=== PATIENT | male | born 1995 | race Caucasian/White ===

== ENCOUNTER 2017-09-16 03:13 | Emergency (ER) | payer BC ==
[2017-09-16] MEDS ORDERED: Nitrostat 0.4 MG (ED) SL ONE ×2 (03:15→03:25)
[2017-09-16] MEDS ORDERED: Sodium Chloride 0.9% 1000 ML 1,000 ML IV SCH (03:15)
[2017-09-16] MEDS ORDERED: BABY ASPIRIN 81 MG CHEW PO ONE (03:15)
[2017-09-16] MEDS ORDERED: BABY ASPIRIN 81 MG CHEW ONE (03:25)
[2017-09-16] MEDS ORDERED: Sodium Chloride 0.9% 1000 ML 1,000 ML ONE (03:25)
--- NOTE | 2017-09-16 03:28 | ERPHSYRPT ---
- History of Present Illness Time Seen by Provider: 09/16/17 03:23 Historian: patient, EMS Exam Limitations: no limitations Patient Subjective Stated Complaint: Pt arrives per EMS - refused cot into facility - C/O substernal and left sided chest pain rating pain 6/10 non- radiating in nature with associated vomiting and headache. Also reports shortness of breath at rest and with exertion. Describes pain in chest as tightness and heaviness. Denies heart history. Also C/O right side pain under ribs. Triage Nursing Assessment: Pt alert, oriented, answers all questions appropriately. Skin pink, warm, dry. Resps non-labored. SPO2 97% room air. Ambulatory to tx room, steady gait noted. EKG at triage. 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 Hx right costal pain and tender today but no other abdominal pain.but has N/V also no diaphoresis Pt was seen for similar symptoms a month ago and released with diagnosis of GERD but just had diffuse abd tenderness at that time; Timing/Duration: today Activities at Onset: activity Quality: burning, pressure, tightness Location: substernal Chest Pain Radiation: no radiation Severity of Pain-Max: moderate Severity of Pain-Current: moderate Modifying Factors: Improves With: palpation Associated Symptoms: nausea, vomiting, abdominal pain, shortness of breath, cough Prior Chest Pain/Cardiac Workup: recently seen/treated Nitro Today/Relief: 0.4 mg x 1, provided by ED, no relief Aspirin Treatment Today: 325 mg x 1, provided by ED Allergies/Adverse Reactions: No Known Drug Allergies Allergy (Verified 09/16/17 03:14) Home Medications: No Reportable Medications [No Reported Medications] 09/16/17 [History] Hx Tetanus, Diphtheria Vaccination/Date Given: Yes (approx 2 years ago) Hx Influenza Vaccination/Date Given: No Hx Pneumococcal Vaccination/Date Given: No Immunizations Up to Date: Yes - Review of Systems Constitutional: No Fever, No Chills Eyes: No Symptoms Ears, Nose, & Throat: No Symptoms Respiratory: Cough, Dyspnea, Dyspnea on Exertion (DAVILA) Cardiac: Chest Pain, No Edema, No Syncope Abdominal/Gastrointestinal: No Abdominal Pain, No Nausea, No Vomiting, No Diarrhea Genitourinary Symptoms: No Dysuria Musculoskeletal: No Back Pain, No Neck Pain Skin: No Rash Neurological: No Dizziness, No Focal Weakness, No Sensory Changes Psychological: No Symptoms Endocrine: No Symptoms Hematologic/Lymphatic: No Symptoms Immunological/Allergic: No Symptoms All Other Systems: Reviewed and Negative - Past Medical History Pertinent Past Medical History: No - Past Surgical History Past Surgical History: No - Social History Smoking Status: Never smoker Exposure to second hand smoke: No Drug Use: none Patient Lives Alone: No - Nursing Vital Signs Nursing Vital Signs: Initial Vital Signs Temperature 98.8 F 09/16/17 03:15 Pulse Rate 97 H 09/16/17 03:15 Respiratory Rate 20 09/16/17 03:15 Blood Pressure 152/95 09/16/17 03:15 O2 Sat by Pulse Oximetry 95 09/16/17 03:15 Pain Scale Pain Intensity 6 - Physical Exam General Appearance: no apparent distress, alert Eye Exam: PERRL/EOMI, eyes nml inspection Ears, Nose, Throat Exam: normal ENT inspection, moist mucous membranes Neck Exam: normal inspection, non-tender, supple, full range of motion Respiratory Exam: normal breath sounds, lungs clear, No respiratory distress Cardiovascular Exam: regular rate/rhythm, normal heart sounds Gastrointestinal/Abdomen Exam: soft, tenderness (RUQ reproducible each time), guarding, No distention, No mass, No pulsatile mass, No rebound Rectal Exam: deferred Back Exam: normal inspection, No CVA tenderness, No vertebral tenderness Extremity Exam: normal inspection, normal range of motion Neurologic Exam: alert, oriented x 3, cooperative, normal mood/affect, sensation nml, No motor deficits Skin Exam: normal color, warm, dry SpO2 Interpretation: normal SpO2: 97 Oxygen Delivery: Room Air - Course Nursing assessment & vital signs reviewed: Yes EKG Interpreted by Me: Sinus Rhythm, NORMAL AXIS, Non-specific ST Changes - Radiology Exams Chest X-ray Interpretation: Interpreted by me, Reviewed by me, Other (increased reticular density diffuse) - CT Exams Abdomen/Pelvis CT Interpretation: Tele-radiologist Report, No appendicitis, Other (enlarged liver/spleen) Ordered Tests: Active Orders 24 hr Category Date Time Status Electronic Equipment Trades Worker STAT Care 09/16/17 03:16 Active Clean Catch Urine Specimen STAT Care 09/16/17 03:15 Active EKG-ER Only STAT Care 09/16/17 03:15 Active IV Insertion STAT Care 09/16/17 03:15 Active Pulse Oximetry (ED) STAT Care 09/16/17 03:15 Active ABDOMEN AND PELVIS W/0 CONTRAS [CT] Stat Exams 09/16/17 04:01 Taken CHEST 1 VIEW (PORTABLE) Stat Exams 09/16/17 03:16 Taken AMYLASE Stat Lab 09/16/17 03:45 Completed ARTERIAL BLOOD GASES Stat Lab 09/16/17 03:55 Completed CBC W DIFF Stat Lab 09/16/17 03:45 Completed CK-Creatinine Phosphokinase Stat Lab 09/16/17 03:45 Completed CMP Stat Lab 09/16/17 03:45 Completed LIPASE Stat Lab 09/16/17 03:45 Completed Lactic Acid Stat Lab 09/16/17 03:15 Completed NT PRO BNP Stat Lab 09/16/17 03:45 Completed TROPONIN Q3H Lab 09/16/17 03:45 Completed TROPONIN Q3H Lab 09/16/17 06:30 Ordered TROPONIN Q3H Lab 09/16/17 09:30 Ordered TROPONIN Q3H Lab 09/16/17 12:30 Ordered TROPONIN Q3H Lab 09/16/17 15:30 Ordered UA W/RFX UR CULTURE Stat Lab 09/16/17 03:16 Ordered Medication Summary Generic Name Dose Route Start Last Admin Trade Name Freq PRN Reason Stop Dose Admin Sodium Chloride 1,000 mls @ 100 mls/hr 09/16/17 03:15 09/16/17 03:27 Sodium Chloride 0.9% 1000 Ml IV 10/16/17 03:14 100 mls/hr .Q10H BERNADETTE Administration Discontinued Medications Generic Name Dose Route Start Last Admin Trade Name Freq PRN Reason Stop Dose Admin Al Hydrox/Mg Hydrox/Simethicone 30 ml 09/16/17 04:49 09/16/17 04:53 Maalox Es 30 Ml Unit Dose PO 09/16/17 04:50 30 ml STAT ONE Administration Al Hydrox/Mg Hydrox/Simethicone Confirm 09/16/17 04:52 Maalox Es 30 Ml Unit Dose Administered 09/16/17 04:53 Dose 30 ml .ROUTE .STK-MED ONE Aspirin 324 mg 09/16/17 03:15 09/16/17 03:28 Baby Aspirin 81 Mg Chew PO 09/16/17 03:16 324 mg STAT ONE Administration Aspirin Confirm 09/16/17 03:25 Baby Aspirin 81 Mg Chew Administered 09/16/17 03:26 Dose 324 mg .ROUTE .STK-MED ONE Diphenhydramine HCl 25 mg 09/16/17 04:02 09/16/17 04:11 Benadryl 50 Mg/Ml IV 09/16/17 04:03 25 mg STAT ONE Administration Diphenhydramine HCl Confirm 09/16/17 04:09 Benadryl 50 Mg/Ml Administered 09/16/17 04:10 Dose 50 mg .ROUTE .STK-MED ONE Famotidine 20 mg 09/16/17 04:49 09/16/17 04:58 Pepcid 20 Mg Vial IV 09/16/17 04:50 20 mg STAT ONE Administration Famotidine Confirm 09/16/17 04:58 Pepcid 20 Mg Vial Administered 09/16/17 04:59 Dose 20 mg IV .STK-MED ONE Morphine Sulfate 4 mg 09/16/17 04:01 09/16/17 04:11 Morphine Sulfate 4 Mg Inj IV 09/16/17 04:02 4 mg STAT ONE Administration Morphine Sulfate Confirm 09/16/17 04:09 Morphine Sulfate 4 Mg Inj Administered 09/16/17 04:10 Dose 4 mg .ROUTE .STK-MED ONE Morphine Sulfate 4 mg 09/16/17 04:44 09/16/17 04:49 Morphine Sulfate 4 Mg Inj IV 09/16/17 04:45 4 mg STAT ONE Administration Morphine Sulfate Confirm 09/16/17 04:48 Morphine Sulfate 4 Mg Inj Administered 09/16/17 04:49 Dose 4 mg .ROUTE .STK-MED ONE Nitroglycerin 0.4 mg 09/16/17 03:15 09/16/17 03:28 Nitrostat 0.4 Mg (Ed) SL 09/16/17 03:16 0.4 mg STAT ONE Administration Nitroglycerin Confirm 09/16/17 03:25 Nitrostat 0.4 Mg (Ed) Administered 09/16/17 03:26 Dose 0.4 mg SL .STK-MED ONE Ondansetron HCl 4 mg 09/16/17 04:02 09/16/17 04:11 Zofran 4 Mg/2 Ml Vial IV 09/16/17 04:03 4 mg STAT ONE Administration Ondansetron HCl Confirm 09/16/17 04:09 Zofran 4 Mg/2 Ml Vial Administered 09/16/17 04:10 Dose 4 mg .ROUTE .STK-MED ONE Lab/Rad Data: Laboratory Result Diagrams 09/16/17 03:45 09/16/17 03:45 Laboratory Results 09/16/17 09/16/17 09/16/17 Range/Units 03:55 03:45 03:45 WBC (4.0-10.5) K/mm3 RBC (4.1-5.6) M/mm3 Hgb (12.5-18.0) gm/dl Hct (42-50) % MCV (78-100) fl MCH (26-32) pg MCHC (32-36) g/dl RDW (11.5-14.0) % Plt Count (150-450) K/mm3 MPV (6-9.5) fl Gran % (36.0-66.0) % Lymphocytes % (24.0-44.0) % Monocytes % (0.0-12.0) % Eosinophils % (0.00-5.0) % Basophils % (0.0-0.4) % Basophils # (0-0.4) Puncture Site LEFT RADIAL pCO2 34 L (35-45) mmHg pO2 86 (75-100) mmHg Base Excess 0.2 (-2.0-2.0) O2 Saturation 95.6 (94-100) g/dF ABG pH 7.45 (7.35-7.45) ABG HCO3 23.6 (22-28) ABG O2 Sat (Measured) 99.2 (95-100) % Alonso Test Yes A-a Gradient 21 a/A Ratio 0.80 Hemoglobin 14.7 Carboxyhemoglobin 2.7 (0.0-6.9) % THgb Methemoglobin 0.8 L (1.4-1.5) % Temperature 37.0 C POC O2 Flow Rate 21 % Sodium (136-145) mEq/L Potassium 3.8 (3.5-5.1) mEq/L Chloride (98-107) mEq/L Carbon Dioxide (21-32) mEq/L Anion Gap (5-15) MEQ/L BUN (9-20) mg/dL Creatinine (0.55-1.30) mg/dl Estimated GFR ML/MIN Glucose (70-110) MG/DL Lactic Acid (0.4-2.0) Calcium (8.5-10.1) mg/dL Total Bilirubin (0.2-1.0) mg/dL AST (15-37) U/L ALT (12-78) U/L Alkaline Phosphatase (46-116) U/L Creatine Kinase (39-308) U/L Troponin I < 0.017 (0.000-0.056) ng/ml NT-Pro-B Natriuret Pep 18 (0-125) pg/ml Serum Total Protein (6.4-8.2) gm/dL Albumin (3.4-5.0) g/dL Amylase (25-115) U/L Lipase (73-393) U/L 09/16/17 09/16/17 09/16/17 Range/Units 03:45 03:45 03:15 WBC 8.0 (4.0-10.5) K/mm3 RBC 5.09 (4.1-5.6) M/mm3 Hgb 15.0 (12.5-18.0) gm/dl Hct 45.1 (42-50) % MCV 88.6 (78-100) fl MCH 29.5 (26-32) pg MCHC 33.3 (32-36) g/dl RDW 13.7 (11.5-14.0) % Plt Count 205 (150-450) K/mm3 MPV 9.2 (6-9.5) fl Gran % 58.9 (36.0-66.0) % Lymphocytes % 25.2 (24.0-44.0) % Monocytes % 11.4 (0.0-12.0) % Eosinophils % 3.9 (0.00-5.0) % Basophils % 0.6 (0.0-0.4) % Basophils # 0.05 (0-0.4) Puncture Site pCO2 (35-45) mmHg pO2 (75-100) mmHg Base Excess (-2.0-2.0) O2 Saturation (94-100) g/dF ABG pH (7.35-7.45) ABG HCO3 (22-28) ABG O2 Sat (Measured) (95-100) % Alonso Test A-a Gradient a/A Ratio Hemoglobin Carboxyhemoglobin (0.0-6.9) % THgb Methemoglobin (1.4-1.5) % Temperature C POC O2 Flow Rate % Sodium 139 (136-145) mEq/L Potassium 3.5 (3.5-5.1) mEq/L Chloride 105 (98-107) mEq/L Carbon Dioxide 25.2 (21-32) mEq/L Anion Gap 12.3 (5-15) MEQ/L BUN 18 (9-20) mg/dL Creatinine 1.05 (0.55-1.30) mg/dl Estimated GFR > 60 ML/MIN Glucose 101 (70-110) MG/DL Lactic Acid 0.8 (0.4-2.0) Calcium 9.0 (8.5-10.1) mg/dL Total Bilirubin 0.40 (0.2-1.0) mg/dL AST 39 H (15-37) U/L ALT 80 H (12-78) U/L Alkaline Phosphatase 102 (46-116) U/L Creatine Kinase 408 H (39-308) U/L Troponin I (0.000-0.056) ng/ml NT-Pro-B Natriuret Pep (0-125) pg/ml Serum Total Protein 7.5 (6.4-8.2) gm/dL Albumin 3.9 (3.4-5.0) g/dL Amylase 66 (25-115) U/L Lipase 177 (73-393) U/L - Progress Progress: improved, re-examined Air Movement: good Progress Note: 09/16/17 04:22 pt is given heart score of 3 - 0 for age, 0 for family hx o f none, 1 for possible hptn, 1 moderately suspicious CP, 1 for nonspecific EKG. carboxy HGB 2.7 suggests possibility of very mild CO exposures in nonsmoker . Pt has consistent RUQ tenderness on repeat exam so discussed risk and benefit of CT and he wishes to proceed. 09/16/17 05:54 Chest pain and shortness of breath have resolved; minimal RUQ tenderness but no abd pain at this time pt advised of limitations of testing and that undetected pathology could still be evolving including CAD or other cardiac disease or other intrabdominal or retroperitoneal patholgoy; he prefers DC to f/u PCP on outpt basis to wwork these up and will return meantime if symptoms recur. Blood Culture(s) Obtained: No Antibiotics given: No Counseled pt/family regarding: lab results, diagnosis, need for follow-up, rad results - Departure Time of Disposition: 06:08 Departure Disposition: Home Clinical Impression: Abdominal pain of unknown etiology, resolved chest pain of unknown etiology, bilateral inguinal and umbilical asympto, hernias, Fatty liver, Hepatosplenomegaly Condition: Good Critical Care Time: No Referrals: SCREEN,DRUG [Primary Care Provider] - Instructions: Chest Pain, Shortness of Breath, Gastroesophageal Reflux Disease (GERD), Abdominal Pain-Adult, Groin Hernia, Abdominal Hernia Additional Instructions: followup your blood pressure and chest x-ray with your DrPhilippe as planned and for referral to complete further workups for the esophagus ( reflux) ,the gallbladder, and the heart , especially since the tests we did cannot completely exclude heart problems, and further tests are required to do that . We were not able to find an exact cause for your symptoms, although you have signs both of reflux and gallbladder concerns, and there may be undetected problems evolving with the need for further treatments, including the heart. We did also find enlargement of liver and spleen with minimal elevations of liver tests, as well as small hernias in the groin and belly button to followup with your Dr. ( the hernias do not appear related to your symptoms) return meantime if symptoms recur . begin an over the counter pepcid or similar med for your GERD
[2017-09-16 03:50] LABS: BASOPHIL % 0.6 % (0.0-0.4); Eosinophil % 3.9 % (0.00-5.0); Granulocytes % 58.9 % (36.0-66.0); Lymphocytes % 25.2 % (24.0-44.0); Mean Cell Volume 88.6 fl (78-100); Mean Corpuscular Hemoglobin 29.5 pg (26-32); Mean Platelet Volume 9.2 fl (6-9.5); Monocytes % 11.4 % (0.0-12.0); Platelet Count 205 K/mm3 (150-450); Red Blood Count 5.09 M/mm3 (4.1-5.6); Red Cell Distribution Width 13.7 % (11.5-14.0)
[2017-09-16] MEDS ORDERED: MORPHINE SULFATE 4 MG INJ IV ONE ×2 (04:01→04:44)
[2017-09-16] MEDS ORDERED: BENADRYL 50 MG/ML IV ONE (04:02)
[2017-09-16] MEDS ORDERED: Zofran 4 MG/2 ML VIAL IV ONE (04:02)
[2017-09-16 04:08] LABS: A-aADO2 21; ALLEN TEST OK? Yes; ARTERIAL BLD GAS O2 SATURATION 99.2 % (95-100); ARTERIAL BLOOD GAS BASE EXCESS 0.2 (-2.0-2.0); ARTERIAL BLOOD GAS FIO2 21 %; ARTERIAL BLOOD GAS PO2 86 mmHg (75-100); ARTERIAL BLOOD GAS pH 7.45 (7.35-7.45)
[2017-09-16] MEDS ORDERED: MORPHINE SULFATE 4 MG INJ ONE ×2 (04:09→04:48)
[2017-09-16] MEDS ORDERED: BENADRYL 50 MG/ML ONE (04:09)
[2017-09-16] MEDS ORDERED: Zofran 4 MG/2 ML VIAL ONE (04:09)
[2017-09-16 04:19] LABS: ALBUMIN 3.9 g/dL (3.4-5.0); ALKALINE PHOSPHATASE 102 U/L (46-116); ANION GAP 12.3 MEQ/L (5-15); BLOOD UREA NITROGEN 18 mg/dL (9-20); CHLORIDE 105 mEq/L (98-107); Carbon Dioxide 25.2 mEq/L (21-32); Glucose 101 MG/DL (70-110); LIPASE 177 U/L (73-393); Potassium 3.5 mEq/L (3.5-5.1); SGOT/AST 39 U/L (15-37); SGPT/ALT 80 U/L (12-78); SODIUM 139 mEq/L (136-145); Total Protein 7.5 gm/dL (6.4-8.2)
[2017-09-16] MEDS ORDERED: MAALOX ES 30 ML UNIT DOSE PO ONE (04:49)
[2017-09-16] MEDS ORDERED: Pepcid 20 MG VIAL IV ONE ×2 (04:49→04:58)
[2017-09-16] MEDS ORDERED: MAALOX ES 30 ML UNIT DOSE ONE (04:52)
[2017-09-16 05:47] LABS: ADD URINE CULTURE? NO (NO); Bilirubin NEGATIVE (NEGATIVE); Blood NEGATIVE Ery/ul (0-5); COMPLETE URINE MICROSCOPIC? NO; Collection Type VOID; Glucose NEGATIVE (NEGATIVE); Leukocyte Esterase NEGATIVE (NEGATIVE)
[2017-09-16 06:32] VITALS: BP 129/70; PULSE 97; O2SAT 100
--- NOTE | 2017-09-16 08:29 | XRAY ---
Indication: Chest pain and short of breath. Comparison: June 21, 2013. Portable chest slightly degraded by respiration artifact. No focal infiltrate, consolidation, or large effusion. Heart is not enlarged. Bony thorax intact. Impression: Nonacute chest.
--- NOTE | 2017-09-16 08:29 | XRAY ---
Indication: Right upper quadrant pain. Emesis. Short of breath. Multiple contiguous axial images obtained through the abdomen and pelvis without contrast as ordered. Comparison: None. Lung bases are clear. Heart is not enlarged. Noncontrasted stomach and bowel loops appear nonobstructed. Normal appendix. No free fluid/air. Diffusely fatty liver. Spleen is enlarged measuring 14.1 cm in greatest axial dimension. Remaining liver, gallbladder pancreas, spleen, adrenal glands, kidneys, ureters, bladder, and aorta unremarkable for noncontrast exam. Osseous structures intact. Small bilateral fatty inguinal hernias. Impression: 1. Fatty liver and splenomegaly. 2. Small bilateral fatty inguinal hernias. 3. No acute intra-abdominal/pelvic abnormalities on this noncontrast exam. Comment: Preliminary interpretation was made by [facility]. No critical discrepancy. CT DI 23.68
== END 2017-09-16 06:32 | disposition home or self-care (01) ==
LOC: ED 03:13
DX: R10.9 Unspecified abdominal pain (principal); R07.89 Other chest pain; K40.20 Bilateral inguinal hernia, without obstruction or gangrene, not specified as recurrent; K76.0 Fatty (change of) liver, not elsewhere classified; R16.2 Hepatomegaly with splenomegaly, not elsewhere classified; R11.2 Nausea with vomiting, unspecified; R06.02 Shortness of breath; R05 Cough
CPT/HCPCS: 36000; 36415; 36600; 71010; 74176; 80053; 81002; 82150; 82375; 82550; 82803; 83605; 83690; 83880; 84484; 85025; 93005; 93041; 96360; 96374; 96375; 96376; 99283; J1200; J2270; J2405; A9270-GY

== ENCOUNTER 2018-01-03 16:28 | Emergency (ER) | payer BC ==
[2018-01-03] MEDS ORDERED: Sodium Chloride 0.9% 1000 ML 1,000 ML IV STA (17:01)
--- NOTE | 2018-01-03 17:01 | ERPHSYRPT ---
- History of Present Illness Time Seen by Provider: 01/03/18 16:57 Source: patient Exam Limitations: no limitations Patient Subjective Stated Complaint: pt co headache,nausea, sob, cough Triage Nursing Assessment: pt walked in , resp easy, skin w/d/p, abd soft, no cough . also states he fell twice today from dizziness Physician History: The patient is a 22-year-old male complaining of a headache for 4 days followed by feeling nauseated, decreased fluid intake, and generalized muscle aches for 2 days. He denies cough or sore throat. He has not vomited. He denies diarrhea. He did not receive his influenza vaccination this year. His past medical history is unremarkable. He has taken Excedrin migraine, Tylenol, and ibuprofen without relief of his headache. He has not taken any of these medicines today. Timing/Duration: day(s) (4), gradual onset, worse Severity: severe Modifying Factors: Improves With: acetaminophen, ibuprofen Associated Symptoms: nausea, headaches, No vomiting, No abdominal pain, No cough Allergies/Adverse Reactions: No Known Drug Allergies Allergy (Verified 01/03/18 16:39) Home Medications: No Reportable Medications [No Reported Medications] 09/16/17 [History] Hx Tetanus, Diphtheria Vaccination/Date Given: Yes (approx 2 years ago) Hx Influenza Vaccination/Date Given: No Hx Pneumococcal Vaccination/Date Given: No Immunizations Up to Date: Yes - Review of Systems Constitutional: Malaise Eyes: No Symptoms Ears, Nose, & Throat: No Nose Congestion, No Throat Pain Respiratory: No Cough Cardiac: No Chest Pain, No Edema, No Syncope Abdominal/Gastrointestinal: Nausea, No Abdominal Pain, No Vomiting, No Diarrhea Genitourinary Symptoms: Other (decreased urine output), No Dysuria Musculoskeletal: Myalgias Skin: No Rash Neurological: Dizziness, Headache Psychological: No Symptoms Endocrine: No Symptoms Hematologic/Lymphatic: No Symptoms Immunological/Allergic: No Symptoms All Other Systems: Reviewed and Negative - Past Medical History Pertinent Past Medical History: No - Past Surgical History Past Surgical History: Yes Gastrointestinal: Cholecystectomy - Social History Smoking Status: Never smoker Exposure to second hand smoke: No Drug Use: none Patient Lives Alone: No - Nursing Vital Signs Nursing Vital Signs: Initial Vital Signs Temperature 97.6 F 01/03/18 16:33 Pulse Rate 96 H 01/03/18 16:33 Respiratory Rate 18 01/03/18 16:33 Blood Pressure 185/105 01/03/18 16:33 O2 Sat by Pulse Oximetry 96 01/03/18 16:33 Pain Scale Pain Intensity 9 - Physical Exam General Appearance: mild distress Eye Exam: PERRL/EOMI, eyes nml inspection Ears, Nose, Throat Exam: normal ENT inspection, TMs normal, pharynx normal, moist mucous membranes Neck Exam: normal inspection, non-tender, supple, full range of motion Respiratory Exam: normal breath sounds, lungs clear, No respiratory distress Cardiovascular Exam: regular rate/rhythm, normal heart sounds, normal peripheral pulses Gastrointestinal/Abdomen Exam: soft, normal bowel sounds, No tenderness, No mass Rectal Exam: not done Back Exam: normal inspection, normal range of motion, No CVA tenderness, No vertebral tenderness Extremity Exam: normal inspection, normal range of motion, pelvis stable Neurologic Exam: alert, oriented x 3, cooperative, normal mood/affect, nml cerebellar function, nml station & gait, sensation nml, No motor deficits Skin Exam: normal color, warm, dry, No rash Lymphatic Exam: No adenopathy SpO2 Interpretation: normal SpO2: 96 Oxygen Delivery: Room Air - Radiology Exams Chest X-ray Interpretation: Interpreted by me, Negative Ordered Tests: Active Orders 24 hr Category Date Time Status IV Insertion STAT Care 01/03/18 17:01 Active CHEST 2 VIEWS (PA AND LAT) Stat Exams 01/03/18 17:01 Taken BMP Stat Lab 01/03/18 17:20 Completed CBC W DIFF Stat Lab 01/03/18 17:20 Completed CULTURE, THROAT Stat Lab 01/03/18 17:20 Received Lactic Acid Stat Lab 01/03/18 17:01 Completed STREP SCREEN-BETA A Stat Lab 01/03/18 17:20 Completed Medication Summary Discontinued Medications Generic Name Dose Route Start Last Admin Trade Name Airam PRN Reason Stop Dose Admin Acetaminophen 975 mg 01/03/18 17:02 01/03/18 17:21 Tylenol 325 Mg PO 01/03/18 17:03 975 mg STAT ONE Administration Acetaminophen Confirm 01/03/18 17:17 Tylenol 325 Mg Administered 01/03/18 17:18 Dose 975 mg .ROUTE .STK-MED ONE Famotidine 20 mg 01/03/18 17:02 01/03/18 17:21 Pepcid 20 Mg Vial IV 01/03/18 17:03 20 mg STAT ONE Administration Famotidine Confirm 01/03/18 17:17 Pepcid 20 Mg Vial Administered 01/03/18 17:18 Dose 20 mg IV .STK-MED ONE Sodium Chloride 1,000 mls @ 999 mls/hr 01/03/18 17:01 01/03/18 17:22 Sodium Chloride 0.9% 1000 Ml IV 01/03/18 18:01 999 mls/hr .Q1H1M STA Administration Sodium Chloride Confirm 01/03/18 17:17 Sodium Chloride 0.9% 1000 Ml Administered 01/03/18 17:18 Dose 1,000 mls @ ud .ROUTE .STK-MED ONE Ketorolac Tromethamine 30 mg 01/03/18 17:02 01/03/18 17:21 Toradol 30 Mg Injection IV 01/03/18 17:03 30 mg STAT ONE Administration Ketorolac Tromethamine Confirm 01/03/18 17:17 Toradol 30 Mg Injection Administered 01/03/18 17:18 Dose 30 mg .ROUTE .STK-MED ONE Ondansetron HCl 4 mg 01/03/18 17:02 01/03/18 17:21 Zofran 4 Mg/2 Ml Vial IV 01/03/18 17:03 4 mg STAT ONE Administration Ondansetron HCl Confirm 01/03/18 17:17 Zofran 4 Mg/2 Ml Vial Administered 01/03/18 17:18 Dose 4 mg .ROUTE .STK-MED ONE Lab/Rad Data: Laboratory Result Diagrams 01/03/18 17:20 01/03/18 17:20 Laboratory Results 01/03/18 01/03/18 01/03/18 Range/Units 17:20 17:20 17:20 WBC (4.0-10.5) K/mm3 RBC (4.1-5.6) M/mm3 Hgb (12.5-18.0) gm/dl Hct (42-50) % MCV (78-100) fl MCH (26-32) pg MCHC (32-36) g/dl RDW (11.5-14.0) % Plt Count (150-450) K/mm3 MPV (6-9.5) fl Gran % (36.0-66.0) % Eos # (Auto) (0-0.5) Absolute Lymphs (auto) (1.0-4.6) Absolute Monos (auto) (0.0-1.3) Lymphocytes % (24.0-44.0) % Monocytes % (0.0-12.0) % Eosinophils % (0.00-5.0) % Basophils % (0.0-0.4) % Absolute Granulocytes (1.4-6.9) Basophils # (0-0.4) Sodium 141 (137-145) mmol/L Potassium 4.3 (3.5-5.1) mmol/L Chloride 104 (98-107) mmol/L Carbon Dioxide 26 (22-30) mmol/L Anion Gap 16.2 H (5-15) MEQ/L BUN 14 (9-20) mg/dL Creatinine 0.80 (0.66-1.25) mg/dL Estimated GFR > 60 ML/MIN Glucose 91 (74-106) mg/dL Lactic Acid (0.4-2.0) Calcium 9.6 (8.4-10.2) mg/dL Influenza Type A Ag NEGATIVE (NEGATIVE) Influenza Type B Ag NEGATIVE (NEGATIVE) RSV (PCR) NEGATIVE (Negative) Streptococcus Screen NEGATIVE (Negative) 01/03/18 01/03/18 Range/Units 17:20 17:01 WBC 7.5 (4.0-10.5) K/mm3 RBC 5.46 (4.1-5.6) M/mm3 Hgb 15.8 (12.5-18.0) gm/dl Hct 47.2 (42-50) % MCV 86.4 (78-100) fl MCH 28.9 (26-32) pg MCHC 33.5 (32-36) g/dl RDW 13.9 (11.5-14.0) % Plt Count 203 (150-450) K/mm3 MPV 9.5 (6-9.5) fl Gran % 55.3 (36.0-66.0) % Eos # (Auto) 0.16 (0-0.5) Absolute Lymphs (auto) 2.60 (1.0-4.6) Absolute Monos (auto) 0.57 (0.0-1.3) Lymphocytes % 34.7 (24.0-44.0) % Monocytes % 7.6 (0.0-12.0) % Eosinophils % 2.1 (0.00-5.0) % Basophils % 0.3 (0.0-0.4) % Absolute Granulocytes 4.14 (1.4-6.9) Basophils # 0.02 (0-0.4) Sodium (137-145) mmol/L Potassium (3.5-5.1) mmol/L Chloride (98-107) mmol/L Carbon Dioxide (22-30) mmol/L Anion Gap (5-15) MEQ/L BUN (9-20) mg/dL Creatinine (0.66-1.25) mg/dL Estimated GFR ML/MIN Glucose (74-106) mg/dL Lactic Acid 0.9 (0.4-2.0) Calcium (8.4-10.2) mg/dL Influenza Type A Ag (NEGATIVE) Influenza Type B Ag (NEGATIVE) RSV (PCR) (Negative) Streptococcus Screen (Negative) - Progress Progress: improved Counseled pt/family regarding: lab results, diagnosis, need for follow-up, rad results - Departure Time of Disposition: 18:20 Departure Disposition: Home Clinical Impression: Headache Condition: Stable Critical Care Time: No Referrals: ANA MARIA CENTENO [Primary Care Provider] - Additional Instructions: You had a migraine headache. You were given Toradol 30 mg, famotidine 20 mg, Zofran 4 mg, and fluids by IV, and Tylenol 975 mg orally in the ER. You have the night off from work. Stay well hydrated. Follow-up tomorrow if the condition worsens.
[2018-01-03] MEDS ORDERED: Pepcid 20 MG VIAL IV ONE ×2 (17:02→17:17)
[2018-01-03] MEDS ORDERED: Zofran 4 MG/2 ML VIAL IV ONE (17:02)
[2018-01-03] MEDS ORDERED: TORAdol 30 mg Injection IV ONE (17:02)
[2018-01-03] MEDS ORDERED: TYLENOL 325 MG PO ONE (17:02)
[2018-01-03] MEDS ORDERED: TORAdol 30 mg Injection ONE (17:17)
[2018-01-03] MEDS ORDERED: Zofran 4 MG/2 ML VIAL ONE (17:17)
[2018-01-03] MEDS ORDERED: TYLENOL 325 MG ONE (17:17)
[2018-01-03] MEDS ORDERED: Sodium Chloride 0.9% 1000 ML 1,000 ML ONE (17:17)
[2018-01-03 17:24] LABS: BASOPHIL % 0.3 % (0.0-0.4); Basophil (Absolute #) 0.02 (0-0.4); Eosinophil % 2.1 % (0.00-5.0); Eosinophil (Absolute #) 0.16 (0-0.5); Granulocyte Absolute (ANC) 4.14 (1.4-6.9); Granulocytes % 55.3 % (36.0-66.0); Hematocrit 47.2 % (42-50); Hemoglobin 15.8 gm/dl (12.5-18.0); Lymphocytes % 34.7 % (24.0-44.0); Mean Cell Volume 86.4 fl (78-100); Mean Corpuscular Hemoglobin 28.9 pg (26-32); Mean Corpuscular Hgb Concent. 33.5 g/dl (32-36); Mean Platelet Volume 9.5 fl (6-9.5); Monocyte (Absolute #) 0.57 (0.0-1.3); Monocytes % 7.6 % (0.0-12.0); Platelet Count 203 K/mm3 (150-450); Red Blood Count 5.46 M/mm3 (4.1-5.6); Red Cell Distribution Width 13.9 % (11.5-14.0); White Blood Count 7.5 K/mm3 (4.0-10.5)
[2018-01-03 17:41] LABS: ANION GAP 16.2 MEQ/L (5-15); BLOOD UREA NITROGEN 14 mg/dL (9-20); CHLORIDE 104 mmol/L (98-107); Calcium 9.6 mg/dL (8.4-10.2); Carbon Dioxide 26 mmol/L (22-30); Glucose 91 mg/dL (74-106); Potassium 4.3 mmol/L (3.5-5.1); SODIUM 141 mmol/L (137-145)
[2018-01-03 18:10] LABS: INFLUENZA A NEGATIVE (NEGATIVE); INFLUENZA B NEGATIVE (NEGATIVE); RESPIRATORY SYNCTIAL VIRUS NEGATIVE (Negative)
[2018-01-03 18:47] VITALS: BP 161/70; PULSE 78; O2SAT 97
--- NOTE | 2018-01-04 08:31 | XRAY ---
Indication: Cough and dizziness. Comparison: September 16, 2017. PA/lateral chest demonstrates normal heart, lungs, and bony thorax.
== END 2018-01-03 18:54 | disposition home or self-care (01) ==
LOC: ED 16:28
DX: R51 Headache (principal); R42 Dizziness and giddiness
CPT/HCPCS: 36000; 36415; 71046; 80048; 83605; 85025; 87070; 87430; 87631; 96360; 96361; 96374; 96375; 99283; 99284; J1885; J2405; A9270-GY

== ENCOUNTER 2018-01-05 15:46 | Emergency (ER) | payer BC ==
[2018-01-05] MEDS ORDERED: Sodium Chloride 0.9% 1000 ML 1,000 ML IV SCH (16:00)
[2018-01-05] MEDS ORDERED: Phenergan 25 MG INJ IV ONE ×2 (16:03→18:48)
--- NOTE | 2018-01-05 16:11 | ERPHSYRPT ---
- History of Present Illness Time Seen by Provider: 01/05/18 15:50 Source: patient Exam Limitations: no limitations Patient Subjective Stated Complaint: Pt states "I have been vomiting for a couple of days and I have this horrible headache." Triage Nursing Assessment: Pt alert and oriented X 3, skin pwd. PT ambualtes without difficulty, able to speak in clear full sentences. Physician History: FOR THE PAST WEEK PT HAS HAD NAUSEA, DIZZINESS AND A FRONTAL HEADACHE RADIATING TO THE ENTIRE HEAD; FOR THE PAST 2 DAYS CONSTANT DULL MID CHEST PAIN RADIATING TO THE NECK AND BACK WITH LEFT UPPER EXTREMITY NUMBNESS; TODAY NUMBNESS OF THE ENTIRE RIGHT LOWER EXTREMITY AND VOMITING X10 A FEW TIMES WITH FAINT RED BLOOD. Allergies/Adverse Reactions: No Known Drug Allergies Allergy (Verified 01/03/18 16:39) Hx Tetanus, Diphtheria Vaccination/Date Given: Yes Hx Influenza Vaccination/Date Given: Yes Hx Pneumococcal Vaccination/Date Given: No Immunizations Up to Date: Yes - Review of Systems Cardiac: Chest Pain Abdominal/Gastrointestinal: Nausea, Vomiting, Hematemesis Neurological: Dizziness, Headache, Sensory Changes All Other Systems: Reviewed and Negative - Past Medical History Pertinent Past Medical History: No - Past Surgical History Past Surgical History: Yes Gastrointestinal: Cholecystectomy - Social History Smoking Status: Never smoker Exposure to second hand smoke: No Drug Use: none Patient Lives Alone: No - Nursing Vital Signs Nursing Vital Signs: Initial Vital Signs Temperature 97.7 F 01/05/18 15:53 Pulse Rate 88 01/05/18 15:53 Respiratory Rate 18 01/05/18 15:53 Blood Pressure 160/104 01/05/18 15:53 O2 Sat by Pulse Oximetry 98 01/05/18 15:53 Pain Scale Pain Intensity 10 - Physical Exam General Appearance: alert Eye Exam: PERRL/EOMI Ears, Nose, Throat Exam: TMs normal, pharynx normal, moist mucous membranes Neck Exam: normal inspection Respiratory Exam: lungs clear Cardiovascular Exam: normal heart sounds Gastrointestinal/Abdomen Exam: soft, normal bowel sounds Back Exam: normal range of motion Extremity Exam: normal inspection, normal range of motion Neurologic Exam: alert, cooperative, sensation nml, No motor deficits, No motor weakness Skin Exam: rash (DISCRETE 1MM DIAMETER MACULES ON FACE) SpO2 Interpretation: normal SpO2: 98 Oxygen Delivery: Room Air - Course Nursing assessment & vital signs reviewed: Yes EKG Interpreted by Me: RATE (74), NORMAL AXIS, Other (SINUS ARRHYTHMIA) - Radiology Exams Chest X-ray Interpretation: Interpreted by me, No Pneumonia - CT Exams Head CT Interpretation: Tele-radiologist Report (NORMAL HEAD/BRAIN CT.) Chest CT Interpretation: Tele-radiologist Report (NO CENTRAL PULMONARY EMBOLISM IS PRESENT.) Abdomen/Pelvis CT Interpretation: Tele-radiologist Report (HEPATOMEGALY WITH HEPATIC STEATOSIS , GROSSLY UNCHANGED SINCE THE PRIOR EXAMINATION.) Ordered Tests: Active Orders 24 hr Category Date Time Status Construction Controller STAT Care 01/05/18 16:01 Active EKG-ER Only STAT Care 01/05/18 15:59 Active IV Insertion STAT Care 01/05/18 15:59 Active Oxygen-ED Only NASAL CANNULA 2 lpm Care 01/05/18 15:59 Active Pulse Oximetry (ED) STAT Care 01/05/18 15:59 Active ABDOMEN AND PELVIS W/0 CONTRAS [CT] Stat Exams 01/05/18 16:03 Taken CHEST 1 VIEW (PORTABLE) Stat Exams 01/05/18 16:00 Taken CHEST WITH CONTRAST [CT] Stat Exams 01/05/18 16:54 Taken HEAD WITHOUT CONTRAST [CT] Stat Exams 01/05/18 16:04 Taken AMYLASE Stat Lab 01/05/18 16:15 Completed CBC W DIFF Stat Lab 01/05/18 16:15 Completed CMP Stat Lab 01/05/18 16:15 Completed D-DIMER QUANTITATION Stat Lab 01/05/18 16:15 Completed ETHYL ALCOHOL Stat Lab 01/05/18 16:15 Completed LIPASE Stat Lab 01/05/18 16:15 Completed MAGNESIUM Stat Lab 01/05/18 16:15 Completed NT PRO BNP Stat Lab 01/05/18 16:15 Completed PROTIME WITH INR Stat Lab 01/05/18 16:15 Completed PTT Stat Lab 01/05/18 16:15 Completed TROPONIN Q3H Lab 01/05/18 19:00 Ordered TROPONIN Q3H Lab 01/05/18 22:00 Ordered TROPONIN Q3H Lab 01/06/18 01:00 Ordered TROPONIN Q3H Lab 01/06/18 04:00 Ordered TROPONIN Stat Lab 01/05/18 16:15 Completed UA W/RFX UR CULTURE Stat Lab 01/05/18 18:15 Completed Urine Triage Profile Stat Lab 01/05/18 18:15 Received Medication Summary Generic Name Dose Route Start Last Admin Trade Name Freq PRN Reason Stop Dose Admin Sodium Chloride 1,000 mls @ 100 mls/hr 01/05/18 16:00 01/05/18 16:31 Sodium Chloride 0.9% 1000 Ml IV 02/04/18 15:59 100 mls/hr .Q10H BERNADETTE Administration Discontinued Medications Generic Name Dose Route Start Last Admin Trade Name Airam PRN Reason Stop Dose Admin Fentanyl Citrate 50 mcg 01/05/18 16:13 01/05/18 16:31 Sublimaze 100 Mcg/2 Ml IV 01/05/18 16:14 50 mcg STAT ONE Administration Fentanyl Citrate Confirm 01/05/18 16:25 Sublimaze 100 Mcg/2 Ml Administered 01/05/18 16:26 Dose 100 mcg .ROUTE .STK-MED ONE Sodium Chloride 1,000 mls @ 999 mls/hr 01/05/18 16:48 01/05/18 16:51 Sodium Chloride 0.9% 1000 Ml IV 01/05/18 17:48 999 mls/hr .Q1H1M STA Administration Ondansetron HCl 4 mg 01/05/18 17:07 01/05/18 17:24 Zofran 4 Mg/2 Ml Vial IV 01/05/18 17:08 4 mg STAT ONE Administration Ondansetron HCl Confirm 01/05/18 17:06 Zofran 4 Mg/2 Ml Vial Administered 01/05/18 17:07 Dose 4 mg .ROUTE .STK-MED ONE Promethazine HCl 12.5 mg 01/05/18 16:03 01/05/18 16:31 Phenergan 25 Mg Inj IV 01/05/18 16:04 12.5 mg STAT ONE Administration Promethazine HCl Confirm 01/05/18 16:24 Phenergan 25 Mg Inj Administered 01/05/18 16:25 Dose 25 mg .ROUTE .STK-MED ONE Lab/Rad Data: Laboratory Result Diagrams 01/05/18 16:15 01/05/18 16:15 Laboratory Results 01/05/18 01/05/18 01/05/18 Range/Units 18:15 16:15 16:15 WBC (4.0-10.5) K/mm3 RBC (4.1-5.6) M/mm3 Hgb (12.5-18.0) gm/dl Hct (42-50) % MCV (78-100) fl MCH (26-32) pg MCHC (32-36) g/dl RDW (11.5-14.0) % Plt Count (150-450) K/mm3 MPV (6-9.5) fl Gran % (36.0-66.0) % Eos # (Auto) (0-0.5) Absolute Lymphs (auto) (1.0-4.6) Absolute Monos (auto) (0.0-1.3) Lymphocytes % (24.0-44.0) % Monocytes % (0.0-12.0) % Eosinophils % (0.00-5.0) % Basophils % (0.0-0.4) % Absolute Granulocytes (1.4-6.9) Basophils # (0-0.4) PT 12.0 (8.83-12.87) SECONDS INR 1.08 (0.8-3.0) APTT 30.4 (24.1-36.1) SECONDS D-Dimer 536.77 H* (215-500) ng/mL Sodium 143 (137-145) mmol/L Potassium 4.4 (3.5-5.1) mmol/L Chloride 105 (98-107) mmol/L Carbon Dioxide 26 (22-30) mmol/L Anion Gap 16.2 H (5-15) MEQ/L BUN 14 (9-20) mg/dL Creatinine 0.85 (0.66-1.25) mg/dL Estimated GFR > 60 ML/MIN Glucose 101 (74-106) mg/dL Calcium 9.9 (8.4-10.2) mg/dL Magnesium 1.9 (1.6-2.3) mg/dL Total Bilirubin 0.50 (0.2-1.3) mg/dL AST 44 (17-59) U/L ALT 69 H (0-50) U/L Alkaline Phosphatase 64 (38-126) U/L Troponin I < 0.012 (0.000-0.034) ng/mL NT-Pro-B Natriuret Pep < 11.1 (0-450) pg/mL Serum Total Protein 7.4 (6.3-8.2) g/dL Albumin 4.5 (3.5-5.0) g/dL Amylase 82 (30-110) U/L Lipase 68 (23-300) U/L Ur Collection Type CLEAN CATCH Urine Color YELLOW (YELLOW) Urine Appearance CLEAR (CLEAR) Urine pH 5.0 (5-6) Ur Specific Maud 1.015 (1.005-1.025) Urine Protein NEGATIVE (Negative) Urine Ketones NEGATIVE (NEGATIVE) Urine Blood NEGATIVE (0-5) Alex/ul Urine Nitrite NEGATIVE (NEGATIVE) Urine Bilirubin NEGATIVE (NEGATIVE) Urine Urobilinogen NORMAL (0-1) mg/dL Ur Leukocyte Esterase NEGATIVE (NEGATIVE) Urine Culture Reflexed NO (NO) Urine Glucose NEGATIVE (NEGATIVE) mg/dL Ethyl Alcohol < 10 H (0-9) mg/dL Specimen Received 01/05/18 1815 01/05/18 Range/Units 16:15 WBC 7.7 (4.0-10.5) K/mm3 RBC 5.16 (4.1-5.6) M/mm3 Hgb 15.0 (12.5-18.0) gm/dl Hct 45.2 (42-50) % MCV 87.6 (78-100) fl MCH 29.1 (26-32) pg MCHC 33.2 (32-36) g/dl RDW 14.1 H (11.5-14.0) % Plt Count 212 (150-450) K/mm3 MPV 9.4 (6-9.5) fl Gran % 60.6 (36.0-66.0) % Eos # (Auto) 0.07 (0-0.5) Absolute Lymphs (auto) 2.36 (1.0-4.6) Absolute Monos (auto) 0.59 (0.0-1.3) Lymphocytes % 30.6 (24.0-44.0) % Monocytes % 7.6 (0.0-12.0) % Eosinophils % 0.9 (0.00-5.0) % Basophils % 0.3 (0.0-0.4) % Absolute Granulocytes 4.68 (1.4-6.9) Basophils # 0.02 (0-0.4) PT (8.83-12.87) SECONDS INR (0.8-3.0) APTT (24.1-36.1) SECONDS D-Dimer (215-500) ng/mL Sodium (137-145) mmol/L Potassium (3.5-5.1) mmol/L Chloride (98-107) mmol/L Carbon Dioxide (22-30) mmol/L Anion Gap (5-15) MEQ/L BUN (9-20) mg/dL Creatinine (0.66-1.25) mg/dL Estimated GFR ML/MIN Glucose (74-106) mg/dL Calcium (8.4-10.2) mg/dL Magnesium (1.6-2.3) mg/dL Total Bilirubin (0.2-1.3) mg/dL AST (17-59) U/L ALT (0-50) U/L Alkaline Phosphatase (38-126) U/L Troponin I (0.000-0.034) ng/mL NT-Pro-B Natriuret Pep (0-450) pg/mL Serum Total Protein (6.3-8.2) g/dL Albumin (3.5-5.0) g/dL Amylase (30-110) U/L Lipase (23-300) U/L Ur Collection Type Urine Color (YELLOW) Urine Appearance (CLEAR) Urine pH (5-6) Ur Specific Maud (1.005-1.025) Urine Protein (Negative) Urine Ketones (NEGATIVE) Urine Blood (0-5) Alex/ul Urine Nitrite (NEGATIVE) Urine Bilirubin (NEGATIVE) Urine Urobilinogen (0-1) mg/dL Ur Leukocyte Esterase (NEGATIVE) Urine Culture Reflexed (NO) Urine Glucose (NEGATIVE) mg/dL Ethyl Alcohol (0-9) mg/dL Specimen Received - Departure Time of Disposition: 18:48 Departure Disposition: Home Clinical Impression: HEADACHE, VOMITING, DYSESTHESIA, CHEST PAIN, DIZZINESS Condition: Stable Critical Care Time: No Referrals: ANA MARIA CENTENO [Primary Care Provider] - Instructions: Vomiting -- Adult, Headache, Adult, Dizziness, Nonvertigo, (DC) Additional Instructions: FOLLOW UP WITH PRIVATE DOCTOR TOMORROW. Prescriptions: Meclizine HCl 25 mg [Antivert 25 mg] 25 mg PO Q8HPRN PRN #30 tablet PRN Reason: Dizziness
[2018-01-05] MEDS ORDERED: SUBLIMAZE 100 MCG/2 ML IV ONE (16:13)
[2018-01-05] MEDS ORDERED: Phenergan 25 MG INJ ONE ×2 (16:24→18:55)
[2018-01-05] MEDS ORDERED: SUBLIMAZE 100 MCG/2 ML ONE (16:25)
[2018-01-05] MEDS ORDERED: Sodium Chloride 0.9% 1000 ML 1,000 ML ONE (16:25)
[2018-01-05 16:32] LABS: BASOPHIL % 0.3 % (0.0-0.4); Basophil (Absolute #) 0.02 (0-0.4); Eosinophil % 0.9 % (0.00-5.0); Eosinophil (Absolute #) 0.07 (0-0.5); Granulocyte Absolute (ANC) 4.68 (1.4-6.9); Granulocytes % 60.6 % (36.0-66.0); Hematocrit 45.2 % (42-50); Lymphocyte (Absolute #) 2.36 (1.0-4.6); Lymphocytes % 30.6 % (24.0-44.0); Mean Cell Volume 87.6 fl (78-100); Mean Corpuscular Hemoglobin 29.1 pg (26-32); Mean Corpuscular Hgb Concent. 33.2 g/dl (32-36); Mean Platelet Volume 9.4 fl (6-9.5); Monocyte (Absolute #) 0.59 (0.0-1.3); Monocytes % 7.6 % (0.0-12.0); Platelet Count 212 K/mm3 (150-450); Red Blood Count 5.16 M/mm3 (4.1-5.6); Red Cell Distribution Width 14.1 % (11.5-14.0); White Blood Count 7.7 K/mm3 (4.0-10.5)
[2018-01-05 16:34] LABS: INR 1.08 (0.8-3.0)
[2018-01-05 16:37] LABS: PTT 30.4 SECONDS (24.1-36.1)
[2018-01-05 16:40] LABS: ALBUMIN 4.5 g/dL (3.5-5.0); ALKALINE PHOSPHATASE 64 U/L (38-126); AMYLASE 82 U/L (30-110); ANION GAP 16.2 MEQ/L (5-15); BLOOD UREA NITROGEN 14 mg/dL (9-20); CHLORIDE 105 mmol/L (98-107); Calcium 9.9 mg/dL (8.4-10.2); Carbon Dioxide 26 mmol/L (22-30); Creatinine 1 0.85 mg/dL (0.66-1.25); Glucose 101 mg/dL (74-106); LIPASE 68 U/L (23-300); Potassium 4.4 mmol/L (3.5-5.1); SGOT/AST 44 U/L (17-59); SGPT/ALT 69 U/L (0-50); SODIUM 143 mmol/L (137-145); Total Protein 7.4 g/dL (6.3-8.2)
[2018-01-05] MEDS ORDERED: Sodium Chloride 0.9% 1000 ML 1,000 ML IV STA (16:48)
[2018-01-05 16:51] LABS: NT PRO BNP < 11.1 pg/mL (0-450)
[2018-01-05 16:52] LABS: ETHYL ALCOHOL < 10 mg/dL (0-9); TROPONIN < 0.012 ng/mL (0.000-0.034)
[2018-01-05 16:55] LABS: D-DIMER QUANTITATION 536.77 ng/mL (215-500)
[2018-01-05] MEDS ORDERED: Zofran 4 MG/2 ML VIAL ONE (17:06)
[2018-01-05] MEDS ORDERED: Zofran 4 MG/2 ML VIAL IV ONE (17:07)
[2018-01-05 18:27] LABS: Appearance CLEAR (CLEAR); Bilirubin NEGATIVE (NEGATIVE); Blood NEGATIVE Ery/ul (0-5); Glucose NEGATIVE (NEGATIVE); Ketones NEGATIVE (NEGATIVE); Leukocyte Esterase NEGATIVE (NEGATIVE); Nitrite NEGATIVE (NEGATIVE); Protein,Urine Dip NEGATIVE (Negative); Specific Gravity 1.015 (1.005-1.025); Urobilinogen NORMAL mg/dL (0-1)
[2018-01-05 18:42] LABS: Amphetamine,Urine NEGATIVE (NEGATIVE); Barbiturate,Urine NEGATIVE (NEGATIVE); Benzodiazepine,Urine NEGATIVE (NEGATIVE); Cocaine,Urine NEGATIVE (NEGATIVE); Methadone,Urine NEGATIVE (NEGATIVE); Opiate,Urine NEGATIVE (NEGATIVE); PCP,Urine NEGATIVE (NEGATIVE); THC,Urine NEGATIVE (NEGATIVE)
[2018-01-05] MEDS ORDERED: Hydromorphone 1 mg/ml Ampule IV ONE (18:48)
[2018-01-05] MEDS ORDERED: DILAUDID 2 MG INJECTION ONE (18:55)
[2018-01-05 20:11] VITALS: BP 160/88; PULSE 66; O2SAT 97
--- NOTE | 2018-01-06 10:00 | XRAY ---
Indication: Nausea and vomiting blood. Multiple contiguous axial images obtained through the abdomen and pelvis without contrast as ordered. Comparison: September 16, 2017. CT chest reported separately. Noncontrasted stomach and bowel loops appear nonobstructed. Normal appendix. Interval cholecystectomy. No free fluid/air. Again diffuse fatty liver and 14 cm splenomegaly. Remaining pancreas, adrenal glands, kidneys, ureters, bladder, and aorta appear unremarkable for noncontrast exam. Osseous structures intact. Stable small fatty bilateral inguinal hernias. Impression: 1. Stable fatty liver, splenomegaly, and small bilateral fatty inguinal hernias. 2. Remaining CT abdomen/pelvis without contrast exam is negative. Comment: Preliminary interpretation was made by [facility]. No discrepancy. CTDI 28.13
--- NOTE | 2018-01-06 10:03 | XRAY ---
Indication: Headache and dizziness. Multiple contiguous axial images obtained through the head without contrast. Comparison: June 21, 2013. Again normal appearing brain parenchyma, ventricles, and bony calvarium. Visualized paranasal sinuses and mastoid air cells are clear. Impression: Stable normal CT head without contrast exam. Comment: Preliminary interpretation was made by [facility]. No discrepancy. CTDI 64.95
--- NOTE | 2018-01-06 10:06 | XRAY ---
Indication: Nausea and vomiting blood. Elevated d-dimer. Multiple contiguous axial images obtained through the chest using 100 cc Isovue-370 contrast and PE protocol. Comparison: None There is suboptimal opacification of the pulmonary arteries limiting evaluation of the more distal lobar and segmental branches. No central filling defect or pulmonary embolus. Heart is not enlarged. Aorta is normal in course and caliber. No pathologic mediastinal/hilar lymphadenopathy. Small hiatal hernia. Examination of the lung parenchyma demonstrates minimal bilateral dependent atelectasis. No suspicious pulmonary mass, infiltrate, or effusion. Bony thorax intact. CT abdomen reported separately. Impression: 1. Suboptimal pulmonary artery opacification. Negative central pulmonary embolus. 2. No acute cardiopulmonary abnormalities. 3. Small hiatal hernia. Comment: Preliminary interpretation was made by [facility]. No critical discrepancy. CTDI 23.69
--- NOTE | 2018-01-06 10:06 | XRAY ---
Indication: Nausea and vomiting blood. Comparison: January 03, 2018. Portable apical lordotic chest again demonstrates normal heart, lungs, and bony thorax.
== END 2018-01-05 20:11 | disposition home or self-care (01) ==
LOC: ED 15:46
DX: R51 Headache (principal); R11.2 Nausea with vomiting, unspecified; E86.0 Dehydration; R07.89 Other chest pain; R42 Dizziness and giddiness; R20.2 Paresthesia of skin; K92.0 Hematemesis
CPT/HCPCS: 36000; 36415; 70450; 71045; 71260; 74176; 80053; 80302; 80307; 81002; 82150; 83690; 83735; 83880; 84484; 85025; 85379; 85610; 85730; 93005; 93041; 96360; 96374; 96375; 99284; 99285; J1170; J2405; J2550; J3010; G0480

== ENCOUNTER 2018-07-07 15:04 | Emergency (ER) | payer BC ==
[2018-07-07 15:32] LABS: BASOPHIL % 0.3 % (0.0-0.4); Basophil (Absolute #) 0.02 (0-0.4); Eosinophil % 1.2 % (0.00-5.0); Eosinophil (Absolute #) 0.08 (0-0.5); Granulocyte Absolute (ANC) 4.42 (1.4-6.9); Granulocytes % 67.4 % (36.0-66.0); Hematocrit 45.1 % (42-50); Hemoglobin 15.1 gm/dl (12.5-18.0); Lymphocyte (Absolute #) 1.59 (1.0-4.6); Lymphocytes % 24.2 % (24.0-44.0); Mean Cell Volume 87.7 fl (78-100); Mean Corpuscular Hemoglobin 29.4 pg (26-32); Mean Corpuscular Hgb Concent. 33.5 g/dl (32-36); Mean Platelet Volume 9.3 fl (6-9.5); Monocyte (Absolute #) 0.45 (0.0-1.3); Monocytes % 6.9 % (0.0-12.0); Platelet Count 231 K/mm3 (150-450); Red Blood Count 5.14 M/mm3 (4.1-5.6); Red Cell Distribution Width 14.1 % (11.5-14.0); White Blood Count 6.6 K/mm3 (4.0-10.5)
[2018-07-07 15:41] LABS: ALBUMIN 4.6 g/dL (3.5-5.0); ALKALINE PHOSPHATASE 67 U/L (38-126); AMYLASE 84 U/L (30-110); BLOOD UREA NITROGEN 15 mg/dL (9-20); CHLORIDE 107 mmol/L (98-107); Calcium 9.7 mg/dL (8.4-10.2); Carbon Dioxide 23 mmol/L (22-30); Creatinine 1 0.82 mg/dL (0.66-1.25); Glucose 134 mg/dL (74-106); LIPASE 95 U/L (23-300); SGOT/AST 61 U/L (17-59); SGPT/ALT 82 U/L (0-50); SODIUM 141 mmol/L (137-145); Total Protein 7.3 g/dL (6.3-8.2)
--- NOTE | 2018-07-07 15:55 | ERPHSYRPT ---
- History of Present Illness Time Seen by Provider: 07/07/18 15:44 Historian: patient Exam Limitations: no limitations Patient Subjective Stated Complaint: had a heated argument with his father in law and had CP starting 30 [employer] TECH[employer]ICIAN pain goes into his left shoulder and arm. pain with movement and deep inspiratiomn Triage Nursing Assessment: alert and oriented. anxious. staes pain in left chest shoulder and left arm. slight tachpnea with no SOB. states pain with deep breathing,and movemtn. started after an arguement with a familymember. Physician History: This is a 23-year-old white male previously healthy arrives with complaint of chest pain since approximately 2:30 this afternoon. Patient states he was in an argument when he began to have the pain pain is located as a tightness in his anterior chest and a feeling as sharp shooting pains and pain with breathing in the a upper shoulder and neck, Patient states she has been short of breath she also states he is nauseous. He states pain is worse with deep breathing pain was initially rated a 10 out of 10 it is now rated a 4-5 out of 10 he feels like he is getting somewhat better. Patient does state that he took 2 baby aspirin prior to arrival. Past medical history is negative. Past surgical history includes cholecystectomy. Social history patient denies tobacco alcohol or illicit drug use. Timing/Duration: today (2:30 PM) Activities at Onset: emotional stress Quality: other (tightness anterior chest, sharp shooting pains left upper shoulder and neck) Location: shoulder (left shoulder and neck), other (Anterior chest) Chest Pain Radiation: neck, arm (Left shoulder) Severity of Pain-Max: moderate Severity of Pain-Current: mild Modifying Factors: Improves With: other (pain is worse with deep breathing) Associated Symptoms: nausea, shortness of breath, hurts to breathe, No vomiting , No palpitations, No heartburn, No abdominal pain, No cough, No diaphoresis, No chills, No fever, No fatigue, No weakness, No swelling/lump in chest, No syncope, No rash, No headache, No dizziness, No edema, No back pain Prior Chest Pain/Cardiac Workup: no prior chest pain Nitro Today/Relief: no nitro taken today Aspirin Treatment Today: provided at home (162 mg at home), provided by ED (162 mg in the emergency room) Allergies/Adverse Reactions: No Known Drug Allergies Allergy (Verified 01/03/18 16:39) Hx Tetanus, Diphtheria Vaccination/Date Given: Yes Hx Influenza Vaccination/Date Given: Yes Hx Pneumococcal Vaccination/Date Given: No - Review of Systems Constitutional: No Fever, No Chills Eyes: No Symptoms Ears, Nose, & Throat: No Symptoms Respiratory: Dyspnea, No Cough, No Cyanosis, No Dyspnea on Exertion (DAVILA), No Stridor, No Wheezing Cardiac: Chest Pain, No Edema, No Palpitations, No Syncope, No Orthopnea, No PND Abdominal/Gastrointestinal: Nausea, No Abdominal Pain, No Vomiting, No Diarrhea Genitourinary Symptoms: No Dysuria Musculoskeletal: No Back Pain, No Neck Pain Skin: No Rash Neurological: No Dizziness, No Focal Weakness, No Sensory Changes Psychological: Anxiety, Other, No Suicidal Ideations, No Homicidal Ideations Endocrine: No Symptoms All Other Systems: Reviewed and Negative - Past Medical History Pertinent Past Medical History: No - Past Surgical History Past Surgical History: Yes Gastrointestinal: Cholecystectomy - Social History Smoking Status: Never smoker Exposure to second hand smoke: No Drug Use: none Patient Lives Alone: No - Nursing Vital Signs Nursing Vital Signs: Initial Vital Signs Temperature 97.8 F 07/07/18 15:15 Pulse Rate 94 H 07/07/18 15:15 Respiratory Rate 20 07/07/18 15:15 Blood Pressure 156/88 07/07/18 15:15 O2 Sat by Pulse Oximetry 99 07/07/18 15:15 Pain Scale Pain Intensity 6 - Physical Exam General Appearance: mild distress Eye Exam: PERRL/EOMI, eyes nml inspection Ears, Nose, Throat Exam: normal ENT inspection, moist mucous membranes Neck Exam: normal inspection, non-tender, supple, full range of motion Respiratory Exam: normal breath sounds, lungs clear, No respiratory distress Cardiovascular Exam: regular rate/rhythm, normal heart sounds Gastrointestinal/Abdomen Exam: soft, normal bowel sounds, No tenderness, No mass , No guarding, No pulsatile mass, No rebound Back Exam: normal inspection, No CVA tenderness, No vertebral tenderness Extremity Exam: normal inspection, normal range of motion Neurologic Exam: alert, oriented x 3, cooperative, teacher physically impaired II-XII nml as tested, normal mood/affect, sensation nml, No motor deficits Skin Exam: normal color, warm, dry SpO2 Interpretation: normal (99%) SpO2: 99 Oxygen Delivery: Room Air - Course Nursing assessment & vital signs reviewed: Yes EKG Interpreted by Me: RATE (99 bpm), Sinus Rhythm, NORMAL AXIS, Other (EKG normal sinus rhythm, rate 99 bpm, normal axis, no acute st or t wave changes.) - Radiology Exams Chest X-ray Interpretation: Interpreted by me (no acute disease process noted) Ordered Tests: Active Orders 24 hr Category Date Time Status Luster Repairer STAT Care 07/07/18 15:16 Active EKG-ER Only STAT Care 07/07/18 15:16 Active IV Insertion STAT Care 07/07/18 15:16 Active CHEST 1 VIEW (PORTABLE) Stat Exams 07/07/18 15:16 Taken AMYLASE Stat Lab 07/07/18 15:20 Completed CBC W DIFF Stat Lab 07/07/18 15:20 Completed CMP Stat Lab 07/07/18 15:20 Completed D-DIMER QUANTITATION Stat Lab 07/07/18 15:20 Completed LIPASE Stat Lab 07/07/18 15:20 Completed TROPONIN Q3H Lab 07/07/18 15:20 Completed TROPONIN Q3H Lab 07/07/18 18:30 Completed TROPONIN Q3H Lab 07/07/18 21:30 Ordered TROPONIN Q3H Lab 07/08/18 00:30 Ordered TROPONIN Q3H Lab 07/08/18 03:30 Ordered Medication Summary Discontinued Medications Generic Name Dose Route Start Last Admin Trade Name Freq PRN Reason Stop Dose Admin Aspirin 162 mg 07/07/18 15:49 07/07/18 16:22 Baby Aspirin 81 Mg Chew PO 07/07/18 15:50 162 mg STAT ONE Administration Lab/Rad Data: Laboratory Result Diagrams 07/07/18 15:20 07/07/18 15:20 Laboratory Results 07/07/18 07/07/18 07/07/18 Range/Units 18:30 15:20 15:20 WBC (4.0-10.5) K/mm3 RBC (4.1-5.6) M/mm3 Hgb (12.5-18.0) gm/dl Hct (42-50) % MCV (78-100) fl MCH (26-32) pg MCHC (32-36) g/dl RDW (11.5-14.0) % Plt Count (150-450) K/mm3 MPV (6-9.5) fl Gran % (36.0-66.0) % Eos # (Auto) (0-0.5) Absolute Lymphs (auto) (1.0-4.6) Absolute Monos (auto) (0.0-1.3) Lymphocytes % (24.0-44.0) % Monocytes % (0.0-12.0) % Eosinophils % (0.00-5.0) % Basophils % (0.0-0.4) % Absolute Granulocytes (1.4-6.9) Basophils # (0-0.4) D-Dimer 362 (215-500) ng/mL Sodium (137-145) mmol/L Potassium (3.5-5.1) mmol/L Chloride (98-107) mmol/L Carbon Dioxide (22-30) mmol/L Anion Gap (5-15) MEQ/L BUN (9-20) mg/dL Creatinine (0.66-1.25) mg/dL Estimated GFR ML/MIN Glucose (74-106) mg/dL Calcium (8.4-10.2) mg/dL Total Bilirubin (0.2-1.3) mg/dL AST (17-59) U/L ALT (0-50) U/L Alkaline Phosphatase (38-126) U/L Troponin I < 0.012 < 0.012 (0.000-0.034) ng/mL Serum Total Protein (6.3-8.2) g/dL Albumin (3.5-5.0) g/dL Amylase (30-110) U/L Lipase (23-300) U/L 07/07/18 07/07/18 Range/Units 15:20 15:20 WBC 6.6 (4.0-10.5) K/mm3 RBC 5.14 (4.1-5.6) M/mm3 Hgb 15.1 (12.5-18.0) gm/dl Hct 45.1 (42-50) % MCV 87.7 (78-100) fl MCH 29.4 (26-32) pg MCHC 33.5 (32-36) g/dl RDW 14.1 H (11.5-14.0) % Plt Count 231 (150-450) K/mm3 MPV 9.3 (6-9.5) fl Gran % 67.4 H (36.0-66.0) % Eos # (Auto) 0.08 (0-0.5) Absolute Lymphs (auto) 1.59 (1.0-4.6) Absolute Monos (auto) 0.45 (0.0-1.3) Lymphocytes % 24.2 (24.0-44.0) % Monocytes % 6.9 (0.0-12.0) % Eosinophils % 1.2 (0.00-5.0) % Basophils % 0.3 (0.0-0.4) % Absolute Granulocytes 4.42 (1.4-6.9) Basophils # 0.02 (0-0.4) D-Dimer (215-500) ng/mL Sodium 141 (137-145) mmol/L Potassium 4.0 (3.5-5.1) mmol/L Chloride 107 (98-107) mmol/L Carbon Dioxide 23 (22-30) mmol/L Anion Gap 16.0 H (5-15) MEQ/L BUN 15 (9-20) mg/dL Creatinine 0.82 (0.66-1.25) mg/dL Estimated GFR > 60.0 ML/MIN Glucose 134 H (74-106) mg/dL Calcium 9.7 (8.4-10.2) mg/dL Total Bilirubin 0.30 (0.2-1.3) mg/dL AST 61 H (17-59) U/L ALT 82 H (0-50) U/L Alkaline Phosphatase 67 (38-126) U/L Troponin I (0.000-0.034) ng/mL Serum Total Protein 7.3 (6.3-8.2) g/dL Albumin 4.6 (3.5-5.0) g/dL Amylase 84 (30-110) U/L Lipase 95 (23-300) U/L - Progress Progress: improved Air Movement: fair Progress Note: 07/07/18 16:24 23-year-old white male who arrives with complaint of chest tightness and pain in his left shoulder area and neck which began after an argument patient is feeling much better at this time CBC labs troponin chest x-ray all normal. Patient had taken 2 baby aspirin prior to arrival he is given 2 more here in the emergency room. Will plan to wait for repeat troponin 3 hours after last draw anticipate discharge if normal. 07/07/18 18:57 The patient's repeat troponin is within normal limits Will discharge patient he is in no distress - Departure Time of Disposition: 18:57 Departure Disposition: Home Clinical Impression: Chest pain, non-cardiac Condition: Fair Critical Care Time: No Referrals: DOCTOR,NO FAMILY [Primary Care Provider] - Additional Instructions: Return home rest. Follow-up with your family doctor. Return for acute distress or for severe symptoms.
[2018-07-07] MEDS: BABY ASPIRIN 81 MG CHEW PO ONE (16:22)
[2018-07-07 19:26] VITALS: BP 128/82; PULSE 70; O2SAT 97
--- NOTE | 2018-07-07 20:32 | XRAY ---
Indication: Chest pain. Comparison: January 05, 2018. Portable apical lordotic chest again demonstrates normal heart, lungs, and bony thorax.
[2018-07-08] MEDS ORDERED: BABY ASPIRIN 81 MG CHEW ONE (04:08)
== END 2018-07-07 19:31 | disposition home or self-care (01) ==
LOC: ED 15:04
DX: R07.89 Other chest pain (principal); R06.02 Shortness of breath; R11.0 Nausea; M25.512 Pain in left shoulder; M54.2 Cervicalgia
CPT/HCPCS: 36000; 36415; 71045; 80053; 82150; 83690; 84484; 85025; 85379; 93005; 93041; 99284; A9270-GY

== ENCOUNTER 2020-07-18 15:15 | Emergency (ER) | payer SELFPAY ==
[2020-07-18] MEDS ORDERED: TORAdol 30 mg Injection IM ONE (16:05)
[2020-07-18] MEDS ORDERED: Norflex 60 MG/2 ML IM ONE (16:05)
[2020-07-18] MEDS ORDERED: Norflex 60 MG/2 ML ONE (16:09)
[2020-07-18] MEDS ORDERED: TORAdol 30 mg Injection ONE (16:09)
--- NOTE | 2020-07-18 17:07 | ERPHSYRPT ---
- History of Present Illness Time Seen by Provider: 07/18/20 15:42 Source: patient Exam Limitations: no limitations Patient Subjective Stated Complaint: pt reports lifting something heavy at work yesterday and states he felt something pop in his right mid-back, reports today he has pain starting in the mid back that radiates down his right back into the buttock and right leg. Triage Nursing Assessment: pt is aox3, pupils perrl, afebrile, resps easy and non labored, cap refill < 3 seconds, radial pulses strong and equal, pt skin pink warm dry. pt ambulatory to cot with slow, steady gait, pt slow to move, appears in pain. no obvious injury or deformity noted. Physician History: 25 years old male presented in the ER with chief complaint of mid back pain sudden onset after lifting a heavy cylinder at work yesterday and felt a popping sound in the right mid back lateral to the spine. He has taken Tylenol yesterday which helped but since morning pain is progressively worsening especially with movements and bending and is radiating to the right lower back without any numbness tingling or weakness of lower extremities. Denies any loss of bowel or bladder control. No difficulty breathing. Timing/Duration: yesterday, sudden, worse Method of Injury: lifting Quality: sharp Back Pain Location: T-spine, paraspinous muscles Severity of Pain-Max: moderate Severity of Pain-Current: moderate Modifying Factors: Improves With: immobilization. Worsens With: movement, rest Associated Symptoms: denies symptoms Previous symptoms: no prior history Allergies/Adverse Reactions: No Known Drug Allergies Allergy (Verified 01/03/18 16:39) Hx Tetanus, Diphtheria Vaccination/Date Given: Yes Hx Influenza Vaccination/Date Given: No Hx Pneumococcal Vaccination/Date Given: No Immunizations Up to Date: Yes Travel Risk - International Travel Have you traveled outside of the country in past 3 weeks: No - Coronavirus Screening Are you exhibiting any of the following symptoms?: No Close contact with a COVID-19 positive Pt in past 14-21 Days: No - Past Medical History Pertinent Past Medical History: No - Past Surgical History Past Surgical History: Yes Gastrointestinal: Cholecystectomy - Social History Smoking Status: Never smoker Exposure to second hand smoke: No Drug Use: none Patient Lives Alone: No - Nursing Vital Signs Nursing Vital Signs: Initial Vital Signs Temperature 98.4 F 07/18/20 15:36 Pulse Rate 94 H 07/18/20 15:36 Respiratory Rate 20 07/18/20 15:36 Blood Pressure 131/83 07/18/20 15:36 O2 Sat by Pulse Oximetry 97 07/18/20 15:36 Pain Scale Pain Intensity 10 - Physical Exam General Appearance: no apparent distress, alert Eye Exam: PERRL/EOMI, eyes nml inspection Ears, Nose, Throat Exam: normal ENT inspection, pharynx normal Neck Exam: normal inspection, non-tender, supple, full range of motion Respiratory Exam: normal breath sounds, lungs clear Cardiovascular Exam: regular rate/rhythm, normal heart sounds Gastrointestinal Exam: soft, normal bowel sounds, No tenderness Back Exam: normal inspection, decreased range of motion, muscle spasm, point tenderness (LOWER THORACIC/ UPPER LUMBAR RIGHT PARASPINAL MUSCLE TENDERNESS, NO MIDLINE TENDERNESS), No normal range of motion, No vertebral tenderness Extremity Exam: normal inspection, normal range of motion Neurologic Exam: alert, oriented x 3, cooperative, hobber II-XII nml as tested Skin Exam: normal color SpO2 Interpretation: normal SpO2: 97 O2 Delivery: Room Air Ordered Tests: Medication Summary Discontinued Medications Generic Name Dose Route Start Last Admin Trade Name Freq PRN Reason Stop Dose Admin Ketorolac Tromethamine 30 mg 07/18/20 16:05 07/18/20 16:12 Toradol 30 Mg Injection IM 07/18/20 16:06 30 mg STAT ONE Administration Ketorolac Tromethamine Confirm 07/18/20 16:09 Toradol 30 Mg Injection Administered 07/18/20 16:10 Dose 30 mg .ROUTE .STK-MED ONE Orphenadrine Citrate 60 mg 07/18/20 16:05 07/18/20 16:10 Norflex 60 Mg/2 Ml IM 07/18/20 16:06 60 mg STAT ONE Administration Orphenadrine Citrate Confirm 07/18/20 16:09 Norflex 60 Mg/2 Ml Administered 07/18/20 16:10 Dose 60 mg .ROUTE .STK-MED ONE - Progress Progress: improved, pain not gone completely Progress Note: 07/18/20 17:11 I believe patient has lower thoracic/upper lumbar paraspinal muscle strain on the right. Does not have any midline tenderness. Do not think needs any imaging. Given Toradol and Norflex, on reevaluation feeling better. Negative neuro exam in lower extremities. I would place him on NSAIDs and muscle relaxant to go home and outpatient follow-up recommended. Discussed signs symptoms of worsening needing return to ER which he seemed understanding. Counseled pt/family regarding: diagnosis, need for follow-up - Departure Departure Disposition: Home Clinical Impression: Mid-back pain, acute Condition: Stable Critical Care Time: No Referrals: JOSE AGUILAR MD [ACTIVE STAFF] - Follow Up with PCP/3 days Instructions: Back Muscle Strain (DC) Additional Instructions: Avoid heavy lifting/exertional activities. Take Tylenol/ibuprofen along with muscle relaxants and follow-up with primary care for reevaluation. Return to ER for excruciating pain, numbness tingling weakness of lower extremities or loss of bowel or bladder control. Prescriptions: Ibuprofen 600 mg PO Q6HPRN PRN 10 Days #20 tablet PRN Reason: Pain Methocarbamol [Robaxin-750] 750 mg PO TID 10 Days #30 tablet
[2020-07-18 17:24] VITALS: BP 153/86; PULSE 92; O2SAT 95
== END 2020-07-18 17:25 | disposition home or self-care (01) ==
LOC: ED 15:15
DX: M54.6 Pain in thoracic spine (principal); X50.0XXA Overexertion from strenuous movement or load, initial encounter; Y93.89 Activity, other specified; Y92.89 Other specified places as the place of occurrence of the external cause; Y99.0 Civilian activity done for income or pay
CPT/HCPCS: 96372; 99284; J1885; J2360

== ENCOUNTER 2020-10-16 21:14 | Emergency (ER) | payer BC ==
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
[2020-10-16 21:57] LABS: Absolute Neutrophil Ct (ANC) 5.31 (1.4-6.9); BASOPHIL % 0.5 % (0.0-0.4); Basophil (Absolute #) 0.04 (0-0.4); Eosinophil % 1.4 % (0.00-5.0); Eosinophil (Absolute #) 0.11 (0-0.5); Hemoglobin 15.5 gm/dl (12.5-18.0); Lymphocyte (Absolute #) 1.75 (1.0-4.6); Lymphocytes % 22.6 % (24.0-44.0); Mean Corpuscular Hemoglobin 29.6 pg (26-32); Mean Corpuscular Hgb Concent. 33.7 g/dl (32-36); Mean Platelet Volume 9.6 fl (7.5-11.0); Monocyte (Absolute #) 0.52 (0.0-1.3); Monocytes % 6.7 % (0.0-12.0); Neutrophil % 68.8 % (36.0-66.0); Platelet Count 192 K/mm3 (150-450); Red Blood Count 5.23 M/mm3 (4.1-5.6); Red Cell Distribution Width 13.4 % (11.5-14.0); White Blood Count 7.7 K/mm3 (4.0-10.5)
[2020-10-16 22:12] LABS: ALBUMIN 4.2 g/dL (3.5-5.0); ALKALINE PHOSPHATASE 75 U/L (38-126); ANION GAP 10.5 MEQ/L (5-15); BLOOD UREA NITROGEN 16 mg/dL (9-20); CHLORIDE 109 mmol/L (98-107); Calcium 9.5 mg/dL (8.4-10.2); Carbon Dioxide 24 mmol/L (22-30); Creatinine 1 0.75 mg/dL (0.66-1.25); Direct Bilirubin 0.2 mg/dL (0.0-0.4); EST GLOMERULAR FILTRATION RATE > 60.0 ML/MIN; ETHYL ALCOHOL < 10 mg/dL (0-10); Glucose 125 mg/dL (74-106); LIPASE 117 U/L (23-300); Potassium 4.3 mmol/L (3.5-5.1); SGOT/AST 46 U/L (17-59); SGPT/ALT 70 U/L (0-50); SODIUM 139 mmol/L (137-145)
[2020-10-16 22:37] LABS: BAND 1 % (0.0-2.0); Eosinophil 2 % (0.00-3.0); Lymphocytes 12 % (24-44); Monocyte 7 % (0.0-12.0); Neutrophils 78 % (36.-66.); Platelet Estimate NORMAL (NORMAL); Total Cells Counted 100
[2020-10-16 22:55] LABS: ABO TYPING O; Antibody Screen NEGATIVE (NEGATIVE); RH TYPING POSITIVE
[2020-10-17 00:50] VITALS: BP 131/86; PULSE 99
[2020-10-17 06:24] VITALS: O2SAT 95
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
== END 2020-10-17 00:48 | disposition home or self-care (01) ==
LOC: ED 21:14
DX: S43.492A Other sprain of left shoulder joint, initial encounter (principal); S16.1XXA Strain of muscle, fascia and tendon at neck level, initial encounter; V40.5XXA Car driver injured in collision with pedestrian or animal in traffic accident, initial encounter; M25.512 Pain in left shoulder; R07.89 Other chest pain; R11.0 Nausea
CPT/HCPCS: 36415; 70450; 71045; 71260; 72125; 73030; 73060; 74177; 80048; 80076; 80307; 83605; 83690; 84484; 85025; 86850; 86900; 86901; 93005; 93041; 99285; G0480

== ENCOUNTER 2021-04-30 23:28 | Emergency (ER) | payer BC ==
[2021-05-01] MEDS ORDERED: Sodium Chloride 0.9% 1000 ML 1,000 ML IV STA (00:22)
[2021-05-01] MEDS ORDERED: Sodium Chloride 0.9% 1000 ML 1,000 ML ONE (00:42)
--- NOTE | 2021-05-01 00:48 | ERPHSYRPT ---
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 Triage Nursing Assessment: pt arrives p/w/d resp easy non labored a @ox3 no sob noted or distress appears to be uncomfortable in bed Physician History: Patient is a 25-year-old white male who for 2 weeks has been having increasing joint pain especially in his legs feet shoulders etc. He states that he feels like he has been beaten he has been weak it hurts to touch his body he has had some lumps on his arms and back of unknown etiology it is important to note that his history includes an episode of Covid in August 2020. Timing/Duration: week(s) (2), gradual onset, worse Severity: moderate Associated Symptoms: denies symptoms Allergies/Adverse Reactions: No Known Drug Allergies Allergy (Verified 10/16/20 21:18) Hx Tetanus, Diphtheria Vaccination/Date Given: Yes Hx Influenza Vaccination/Date Given: No Hx Pneumococcal Vaccination/Date Given: No Travel Risk - International Travel Have you traveled outside of the country in past 3 weeks: No - Coronavirus Screening Are you exhibiting any of the following symptoms?: Yes Symptoms: Fever, Headaches/Body Aches/Fatigue Close contact with a COVID-19 positive Pt in past 14-21 Days: No - Vaccine Status Have you recieved a Covid-19 vaccination: No - Vaccination Dates Comment: had covid in August - Review of Systems Constitutional: Fever, Chills, Night Sweats Eyes: No Symptoms Ears, Nose, & Throat: No Symptoms Respiratory: No Cough, No Dyspnea Cardiac: No Chest Pain, No Edema, No Syncope Abdominal/Gastrointestinal: No Abdominal Pain, No Nausea, No Vomiting, No Diarrhea Genitourinary Symptoms: No Dysuria Musculoskeletal: Arthralgias, Back Pain, Neck Pain, Joint Pain, Myalgias Skin: No Rash Neurological: No Dizziness, No Focal Weakness, No Sensory Changes Psychological: No Symptoms Endocrine: No Symptoms All Other Systems: Reviewed and Negative - Past Medical History Pertinent Past Medical History: No Neurological History: No Pertinent History ENT History: No Pertinent History Cardiac History: No Pertinent History Respiratory History: No Pertinent History Endocrine Medical History: No Pertinent History Musculoskeletal History: No Pertinent History GI Medical History: No Pertinent History History: No Pertinent History Psycho-Social History: No Pertinent History Male Reproductive Disorders: No Pertinent History - Past Surgical History Past Surgical History: Yes Neuro Surgical History: No Pertinent History Cardiac: No Pertinent History Respiratory: No Pertinent History Gastrointestinal: Cholecystectomy Genitourinary: No Pertinent History Musculoskeletal: No Pertinent History Male Surgical History: No Pertinent History - Social History Smoking Status: Never smoker Exposure to second hand smoke: No Drug Use: none Patient Lives Alone: No - Nursing Vital Signs Nursing Vital Signs: Initial Vital Signs Temperature 96.9 F 04/30/21 23:33 Pulse Rate 90 04/30/21 23:33 Respiratory Rate 20 04/30/21 23:33 Blood Pressure 172/82 04/30/21 23:33 O2 Sat by Pulse Oximetry 97 04/30/21 23:33 Pain Scale Pain Intensity 9 - Physical Exam General Appearance: mild distress, alert Eye Exam: PERRL/EOMI, eyes nml inspection Ears, Nose, Throat Exam: normal ENT inspection, TMs normal, pharynx normal, moist mucous membranes Neck Exam: normal inspection, non-tender, supple, full range of motion Respiratory Exam: normal breath sounds, lungs clear, No respiratory distress Cardiovascular Exam: regular rate/rhythm, normal heart sounds, normal peripheral pulses Gastrointestinal/Abdomen Exam: soft, normal bowel sounds, No tenderness, No mass Back Exam: normal inspection, normal range of motion, No CVA tenderness, No vertebral tenderness Extremity Exam: normal inspection, normal range of motion, pelvis stable Neurologic Exam: alert, oriented x 3, cooperative, normal mood/affect, nml cerebellar function, nml station & gait, sensation nml, No motor deficits Skin Exam: normal color, warm, dry, No rash Lymphatic Exam: No adenopathy SpO2: 97 - Course Nursing assessment & vital signs reviewed: Yes EKG Interpreted by Me: RATE (90), Sinus Rhythm, NORMAL AXIS, NORMAL INTERVALS, NORMAL QRS, NORMAL ST-T - Radiology Exams Chest X-ray Interpretation: Interpreted by me, Negative Ordered Tests: Active Orders 24 hr Category Date Time Status EKG-ER Only STAT Care 05/01/21 00:22 Active IV Insertion STAT Care 05/01/21 00:22 Active CHEST 1 VIEW (PORTABLE) Stat Exams 05/01/21 00:22 Taken CBC W DIFF Stat Lab 05/01/21 00:50 Completed CK-Creatinine Phosphokinase Stat Lab 05/01/21 00:50 Completed CMP Stat Lab 05/01/21 00:50 Completed INFLUENZA A+B CIERA Stat Lab 05/01/21 01:32 Received NT PRO BNP Stat Lab 05/01/21 00:50 Completed PROTIME WITH INR Stat Lab 05/01/21 00:50 Completed SED RATE [Erythrocyte Sedimentation Rate] Stat Lab 05/01/21 00:50 Completed TROPONIN Q3H Lab 05/01/21 00:52 Completed TROPONIN Q3H Lab 05/01/21 03:30 Ordered TROPONIN Q3H Lab 05/01/21 06:30 Ordered TROPONIN Q3H Lab 05/01/21 09:30 Ordered TROPONIN Q3H Lab 05/01/21 12:30 Ordered Medication Summary Generic Name Dose Route Start Last Admin Trade Name Freq PRN Reason Stop Dose Admin Methylprednisolone Sodium 0 mg 05/01/21 02:15 Succinate 125 mg/ Sterile IV 05/01/21 02:16 Water 2 ml STAT ONE Discontinued Medications Generic Name Dose Route Start Last Admin Trade Name Freq PRN Reason Stop Dose Admin Sodium Chloride 1,000 mls @ 999 mls/hr 05/01/21 00:22 05/01/21 00:44 Sodium Chloride 0.9% 1000 Ml IV 05/01/21 01:22 999 mls/hr .Q1H1M STA Administration Sodium Chloride Confirm 05/01/21 00:42 Sodium Chloride 0.9% 1000 Ml Administered 05/01/21 00:43 Dose 1,000 mls @ ud .ROUTE .STK-MED ONE Lab/Rad Data: Laboratory Result Diagrams 05/01/21 00:50 05/01/21 00:50 Laboratory Results 05/01/21 05/01/21 05/01/21 Range/Units 00:52 00:50 00:50 WBC (4.0-10.5) K/mm3 RBC (4.1-5.6) M/mm3 Hgb (12.5-18.0) gm/dl Hct (42-50) % MCV (78-100) fl MCH (26-32) pg MCHC (32-36) g/dl RDW (11.5-14.0) % Plt Count (150-450) K/mm3 MPV (7.5-11.0) fl Gran % (36.0-66.0) % Eos # (Auto) (0-0.5) Absolute Lymphs (auto) (1.0-4.6) Absolute Monos (auto) (0.0-1.3) Lymphocytes % (24.0-44.0) % Monocytes % (0.0-12.0) % Eosinophils % (0.00-5.0) % Basophils % (0.0-0.4) % Absolute Granulocytes (1.4-6.9) Basophils # (0-0.4) ESR 7 (0-15) mm/hr PT 11.8 (9.4-12.5) SECONDS INR 1.00 (0.8-3.0) Sodium (137-145) mmol/L Potassium (3.5-5.1) mmol/L Chloride (98-107) mmol/L Carbon Dioxide (22-30) mmol/L Anion Gap (5-15) MEQ/L BUN (9-20) mg/dL Creatinine (0.66-1.25) mg/dL Estimated GFR ML/MIN Glucose (74-106) mg/dL Calcium (8.4-10.2) mg/dL Total Bilirubin (0.2-1.3) mg/dL AST (17-59) U/L ALT (0-50) U/L Alkaline Phosphatase (38-126) U/L Creatine Kinase (55-170) U/L Troponin I < 0.012 (0.000-0.034) ng/mL NT-Pro-B Natriuret Pep (0-450) pg/mL Serum Total Protein (6.3-8.2) g/dL Albumin (3.5-5.0) g/dL 05/01/21 05/01/21 Range/Units 00:50 00:50 WBC 7.4 (4.0-10.5) K/mm3 RBC 4.85 (4.1-5.6) M/mm3 Hgb 14.3 (12.5-18.0) gm/dl Hct 44.8 (42-50) % MCV 92.4 (78-100) fl MCH 29.5 (26-32) pg MCHC 31.9 L (32-36) g/dl RDW 13.8 (11.5-14.0) % Plt Count 174 (150-450) K/mm3 MPV 9.3 (7.5-11.0) fl Gran % 73.4 H (36.0-66.0) % Eos # (Auto) 0.24 (0-0.5) Absolute Lymphs (auto) 1.17 (1.0-4.6) Absolute Monos (auto) 0.52 (0.0-1.3) Lymphocytes % 15.9 L (24.0-44.0) % Monocytes % 7.1 (0.0-12.0) % Eosinophils % 3.3 (0.00-5.0) % Basophils % 0.3 (0.0-0.4) % Absolute Granulocytes 5.42 (1.4-6.9) Basophils # 0.02 (0-0.4) ESR (0-15) mm/hr PT (9.4-12.5) SECONDS INR (0.8-3.0) Sodium 137 (137-145) mmol/L Potassium 4.3 (3.5-5.1) mmol/L Chloride 104 (98-107) mmol/L Carbon Dioxide 24 (22-30) mmol/L Anion Gap 13.0 (5-15) MEQ/L BUN 15 (9-20) mg/dL Creatinine 0.84 (0.66-1.25) mg/dL Estimated GFR > 60.0 ML/MIN Glucose 105 (74-106) mg/dL Calcium 8.8 (8.4-10.2) mg/dL Total Bilirubin 0.20 (0.2-1.3) mg/dL AST 44 (17-59) U/L ALT 54 H (0-50) U/L Alkaline Phosphatase 77 (38-126) U/L Creatine Kinase 391 H (55-170) U/L Troponin I (0.000-0.034) ng/mL NT-Pro-B Natriuret Pep 46.6 (0-450) pg/mL Serum Total Protein 6.8 (6.3-8.2) g/dL Albumin 4.2 (3.5-5.0) g/dL - Progress Progress: unchanged - Departure Departure Disposition: Home Clinical Impression: Myositis Condition: Stable Critical Care Time: No Referrals: DOCTOR,NO FAMILY [Primary Care Provider] - Instructions: Myositis Ossificans (DC) Prescriptions: Prednisone 10 mg [Deltasone 10 mg] 20 mg PO DAILY #12 tablet
[2021-05-01 00:57] LABS: Absolute Neutrophil Ct (ANC) 5.42 (1.4-6.9); BASOPHIL % 0.3 % (0.0-0.4); Basophil (Absolute #) 0.02 (0-0.4); Eosinophil % 3.3 % (0.00-5.0); Eosinophil (Absolute #) 0.24 (0-0.5); Hematocrit 44.8 % (42-50); Hemoglobin 14.3 gm/dl (12.5-18.0); Lymphocyte (Absolute #) 1.17 (1.0-4.6); Lymphocytes % 15.9 % (24.0-44.0); Mean Cell Volume 92.4 fl (78-100); Mean Corpuscular Hemoglobin 29.5 pg (26-32); Mean Corpuscular Hgb Concent. 31.9 g/dl (32-36); Mean Platelet Volume 9.3 fl (7.5-11.0); Monocyte (Absolute #) 0.52 (0.0-1.3); Monocytes % 7.1 % (0.0-12.0); Neutrophil % 73.4 % (36.0-66.0); Platelet Count 174 K/mm3 (150-450); Red Blood Count 4.85 M/mm3 (4.1-5.6); Red Cell Distribution Width 13.8 % (11.5-14.0); White Blood Count 7.4 K/mm3 (4.0-10.5)
[2021-05-01 01:05] LABS: PROTIME 11.8 SECONDS (9.4-12.5)
[2021-05-01 01:18] LABS: ALBUMIN 4.2 g/dL (3.5-5.0); ALKALINE PHOSPHATASE 77 U/L (38-126); BLOOD UREA NITROGEN 15 mg/dL (9-20); CHLORIDE 104 mmol/L (98-107); CK-Creatinine Phosphokinase 391 U/L (55-170); Calcium 8.8 mg/dL (8.4-10.2); Carbon Dioxide 24 mmol/L (22-30); Creatinine 1 0.84 mg/dL (0.66-1.25); EST GLOMERULAR FILTRATION RATE > 60.0 ML/MIN; Glucose 105 mg/dL (74-106); NT PRO BNP 46.6 pg/mL (0-450); Potassium 4.3 mmol/L (3.5-5.1); SGOT/AST 44 U/L (17-59); SGPT/ALT 54 U/L (0-50); SODIUM 137 mmol/L (137-145); Total Protein 6.8 g/dL (6.3-8.2)
[2021-05-01 02:11] VITALS: O2SAT 97
[2021-05-01] MEDS ORDERED: solu-MEDROL 125 MG, Sterile H2O 10 ml 2 ML IV ONE ×2 (02:15)
[2021-05-01 02:16] LABS: INFLUENZA A NEGATIVE (NEGATIVE); INFLUENZA B NEGATIVE (NEGATIVE)
[2021-05-01] MEDS ORDERED: solu-MEDROL ONE (02:22)
[2021-05-01] MEDS ORDERED: Sterile H2O 10 ml IJ ONE (02:23)
[2021-05-01 02:53] VITALS: BP 133/74; PULSE 88
--- NOTE | 2021-05-01 06:44 | XRAY ---
Indication: Body ache and malaise. Comparison: October 16, 2020. Portable apical lordotic chest again demonstrates normal heart and lungs. Bony thorax intact. No new/acute findings.
== END 2021-05-01 02:49 | disposition home or self-care (01) ==
LOC: ED 23:28
DX: M60.9 Myositis, unspecified (principal)
CPT/HCPCS: 36000; 36415; 71045; 80053; 82550; 83880; 84484; 85025; 85610; 85652; 86140; 87400; 93005; 96374; 99284; U0003; J2930